=== PATIENT | female | born 1980 | race Caucasian/White ===

== ENCOUNTER 2018-08-26 13:08 | Emergency (ER) | payer SELFPAY ==
[2018-08-26 14:09] VITALS: PULSE 81; RESP 18; TEMP 98; O2SAT 99
[2018-08-26 15:14] VITALS: BP 105/71
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
== END 2018-08-26 15:41 | disposition home or self-care (01) ==
LOC: C.ER 13:08
DX: O9A.211 Injury, poisoning and certain other consequences of external causes complicating pregnancy, first trimester (principal); S49.91XA Unspecified injury of right shoulder and upper arm, initial encounter; Z3A.01 Less than 8 weeks gestation of pregnancy